=== PATIENT | male | born 1990 | race Hispanic/Latino ===

== ENCOUNTER 2018-12-27 20:18 | Emergency (ER) | payer SELFPAY ==
[2018-12-27] MEDS ORDERED: HYDROCODONE/ACETAMINOPHEN 5/325 MG TAB ONE (20:43)
== END 2018-12-27 20:53 | disposition home or self-care (01) ==
LOC: EDH 20:18
DX: S43.51XA Sprain of right acromioclavicular joint, initial encounter (principal); W18.39XA Other fall on same level, initial encounter; Y93.02 Activity, running; Y92.89 Other specified places as the place of occurrence of the external cause; Y99.8 Other external cause status
CPT/HCPCS: 73030